=== PATIENT | female | born 1950 | race Caucasian/White ===

== ENCOUNTER → 2016-10-01 | Outpatient (CLI) | payer MEDICAID | LOC: FIMAGING 14:51 | PROVIDERS: ATTEND Internal Medicine | DX: N20.0 Calculus of kidney (principal); I86.2 Pelvic varices; K76.89 Other specified diseases of liver ==

== ENCOUNTER → 2017-04-26 | Outpatient (CLI) | payer MEDICAID | LOC: FIMAGING 12:05 | PROVIDERS: ATTEND Internal Medicine | DX: M19.042 Primary osteoarthritis, left hand (principal) ==

== ENCOUNTER → 2017-05-10 | Outpatient (CLI) | payer MEDICAID | LOC: FIMAGING 11:39 | PROVIDERS: ATTEND Internal Medicine | DX: Z12.31 Encounter for screening mammogram for malignant neoplasm of breast (principal) ==

== ENCOUNTER → 2018-02-26 | Outpatient (CLI) | payer OTHER, MEDICAID | LOC: BHFA 14:00 | PROVIDERS: ATTEND Internal Medicine Cardiovascular Disease | DX: R07.9 Chest pain, unspecified (principal) ==

== ENCOUNTER → 2018-03-28 | Outpatient (CLI) | payer OTHER, MEDICAID | LOC: FIMAGING 13:29 | PROVIDERS: ATTEND Internal Medicine | DX: E78.5 Hyperlipidemia, unspecified (principal); H34.8112 Central retinal vein occlusion, right eye, stable; I65.21 Occlusion and stenosis of right carotid artery; H54.61 Unqualified visual loss, right eye, normal vision left eye; I10 Essential (primary) hypertension; M54.2 Cervicalgia; R73.03 Prediabetes; Z51.81 Encounter for therapeutic drug level monitoring ==

== ENCOUNTER → 2018-04-09 | Outpatient (CLI) | payer OTHER, MEDICAID ==
[~2018-04-09] MED LIST: IOPAMIDOL (ISOVUE 370) 100 ML BTL IV ONE
== END | disposition home or self-care (01) ==
LOC: FIMAGING 15:07
PROVIDERS: ATTEND Ophthalmology Retina Specialist
DX: H34.11 Central retinal artery occlusion, right eye (principal)
CPT/HCPCS: 70481; Q9967

== ENCOUNTER → 2018-04-10 | Outpatient (CLI) | payer OTHER, MEDICAID | LOC: FIMAGING 09:29 | PROVIDERS: ATTEND Internal Medicine | DX: I77.3 Arterial fibromuscular dysplasia (principal) | CPT/HCPCS: 70498; Q9967 ==

== ENCOUNTER 2018-04-16 13:49 | Inpatient (IN) | payer OTHER, MEDICAID ==
--- NOTE | 2018-04-16 13:57 | EDPHY ---
H & P Time Seen by Provider: 04/16/18 13:55 HPI/ROS: CHIEF COMPLAINT: Severe epigastric pain HISTORY OF PRESENT ILLNESS: 67-year-old woman with a history of hypertension and cholecystectomy was at the gas station at 1:30 p.m. Today when she had the sudden onset of epigastric pain radiating to her back which comes in waves and she describes as severe. She initially says it radiates up into her chest but then when I interview her she says most of her pain is between her umbilicus and her epigastrium . Denies vomiting or diarrhea or trouble breathing. Denies weakness or numbness in extremities. Not better or worse with anything. REVIEW OF SYSTEMS: Eye: no change in vision ENT: no sore throat Cardiac: HPI no syncope Pulmonary: no cough or SOB Abdomen: HPI Musculoskeletal: Radiates to the back and no other extremity symptoms. Skin: no rash Neuro: no headache Constitutional: no fever : no urinary symptoms A comprehensive 10 point review of systems is otherwise negative aside from elements mentioned in the history of present illness. PAST MEDICAL HISTORY: Includes hypertension, hyperlipidemia, breast implants. ED visit from January of 2013 personally reviewed Social history: Here with her son General Appearance: Alert and conversant, cooperative. Appears uncomfortable. Eyes: No scleral icterus. ENT, Mouth: Normal mucous membranes. Respiratory: Normal respiratory effort, breath sounds equal, lungs are clear to auscultation. Cardiovascular: Regular rate and rhythm. Gastrointestinal: Upper abdominal tenderness to palpation, no pulsatile mass. Neurological: Alert, face symmetric, normal motor and sensory in extremities. Skin: Warm and dry, no rashes. Musculoskeletal: No peripheral edema. Psychiatric: Not agitated. Emergency Department course/MDM: Procedure: Limited abdominal ultrasound. A limited abdominal ultrasound was performed of the retroperitoneum. The indication for the study was to rule out abdominal aortic aneurysm. On the study no evidence of AAA was identified. Results: No evidence of aortic aneurysm. The examination was performed and interpreted by myself. Fentanyl 100 mcg IV, Zofran 4 mg IV, CT scanning discussed and consented. I think that acute coronary syndrome or pulmonary embolism would be unlikely. Initial EKG does not show ST elevation. Differential does include aortic dissection or abdominal aortic aneurysm, pancreatitis, common duct stone, intestinal perforation. 1518: [place], no reason for abdominal pain on CT. 1540: Results discussed, lipase normal, patient still has 5/10 pain. Ultrasound right upper quadrant, she is not comfortable with going home the way she is feeling now, admit for further workup. Smoking Status: Never smoked Constitutional: Initial Vital Signs Temperature (C) 36.3 C 04/16/18 13:51 Heart Rate 99 04/16/18 13:51 Respiratory Rate 20 04/16/18 13:51 Blood Pressure 136/69 H 04/16/18 13:51 O2 Sat (%) 97 04/16/18 13:51 O2 Delivery Mode Room Air Allergies/Adverse Reactions: No Known Allergies Allergy (Verified 04/16/18 13:50) Home Medications: Medication Instructions Recorded Acetaminophen/Caffeine [Excedrin 2 each PO BID PRN 04/16/18 Tension Headache Cplt] Aspirin [Aspirin 325 mg (*)] 325 mg PO DAILY 04/16/18 Atenolol [Tenormin 25 mg (*)] 25 mg PO DAILY@17 04/16/18 Baclofen [Baclofen 10 mg (*)] 10 mg PO TID PRN 04/16/18 Cholecalciferol Vit D3 [Vitamin D3 2,000 units PO DAILY 04/16/18 (*)] Diclofenac Sodium [Voltaren] 1 skinny TP QID PRN 04/16/18 Doxepin HCl [Silenor] 6 mg PO HS 04/16/18 Gabapentin [Gralise] 600 mg PO DAILY@20 04/16/18 Herbals/Supplements -Info Only 1 ea PO DAILY 04/16/18 Losartan Potassium [Cozaar 25 mg 25 mg PO DAILY 04/16/18 (*)] Zolpidem Tartrate [Ambien Cr] 6.25 mg PO HS 04/16/18 Medical Decision Making - Diagnostics Imaging Results: Imaging Impressions Abdomen CT 04/16/18 14:13 Impression: 1. Normal caliber aorta, without dissection. 2. Minimal stranding in the pelvis adjacent to multiple sigmoid diverticula, which could be related to uncomplicated diverticulitis. 3. Additional findings, as above. Findings discussed with Brennen Quiñonez M.D., on April 16, 2018 at 1517. E:amm Chest/Thorax CTA 04/16/18 14:13 Impression: 1. Normal caliber aorta, without dissection. 2. Minimal stranding in the pelvis adjacent to multiple sigmoid diverticula, which could be related to uncomplicated diverticulitis. 3. Additional findings, as above. Findings discussed with Brennen Quiñonez M.D., on April 16, 2018 at 1517. E:amm Imaging: Discussed imaging studies w/ potable water treatment operator Radiologist - Data Points Laboratory Results: Laboratory Results 04/16/18 14:05 04/16/18 14:05 04/16/18 04/16/18 04/16/18 14:10 14:10 14:05 WBC RBC Hgb POC Hgb 15.0 gm/dL gm/dL (12.6-16.3) Hct POC Hct 44 % % (38-47) MCV MCH MCHC RDW Plt Count MPV Neut % (Auto) Lymph % (Auto) [place] % (Auto) Eos % (Auto) Baso % (Auto) Nucleat RBC Rel Count Absolute Neuts (auto) Absolute Lymphs (auto) Absolute Monos (auto) Absolute Eos (auto) Absolute Basos (auto) Absolute Nucleated RBC Immature Gran % Immature Gran # RBC/WBC/PLT Morphology Platelet Estimate POC Sodium 142 mEq/L mEq/L (135-145) Sodium 140 mEq/L mEq/L (135-145) POC Potassium 3.3 mEq/L mEq/L (3.3-5.0) Potassium 3.7 mEq/L mEq/L (3.5-5.2) POC Chloride 105 mEq/L mEq/L (97-110) Chloride 106 mEq/L mEq/L (97-110) Carbon Dioxide 22 mEq/l mEq/l (22-31) Anion Gap 12 mEq/L mEq/L (6-14) POC BUN 13 mg/dL mg/dL (7-23) BUN 14 mg/dL mg/dL (7-23) Creatinine 0.7 mg/dL mg/dL (0.6-1.0) POC Creatinine 0.7 mg/dL mg/dL (0.6-1.0) Estimated GFR > 60 Glucose 123 mg/dL H mg/dL (70-100) POC Glucose 126 mg/dL H mg/dL (70-100) Calcium 9.7 mg/dL mg/dL (8.5-10.4) Total Bilirubin 0.7 mg/dL mg/dL (0.1-1.4) Conjugated Bilirubin 0.5 mg/dL mg/dL (0.0-0.5) Unconjugated Bilirubin 0.2 mg/dL mg/dL (0.0-1.1) AST 194 IU/L H IU/L (14-46) ALT 112 IU/L H IU/L (9-52) Alkaline Phosphatase 124 IU/L IU/L (38-126) POC Troponin I 0.00 ng/mL ng/mL (0.00-0.08) Total Protein 7.5 g/dL g/dL (6.3-8.2) Albumin 4.7 g/dL g/dL (3.5-5.0) Lipase 65 IU/L IU/L (23-300) 04/16/18 14:05 WBC 12.96 10^3/uL H 10^3/uL (3.80-9.50) RBC 4.92 10^6/uL 10^6/uL (4.18-5.33) Hgb 14.4 g/dL g/dL (12.6-16.3) POC Hgb Hct 42.7 % % (38.0-47.0) POC Hct MCV 86.8 fL fL (81.5-99.8) MCH 29.3 pg pg (27.9-34.1) MCHC 33.7 g/dL g/dL (32.4-36.7) RDW 14.3 % % (11.5-15.2) Plt Count 266 10^3/uL 10^3/uL (150-400) MPV 12.0 fL H fL (8.7-11.7) Neut % (Auto) 51.7 % % (39.3-74.2) Lymph % (Auto) 40.0 % % (15.0-45.0) [place] % (Auto) 7.3 % % (4.5-13.0) Eos % (Auto) 0.3 % L % (0.6-7.6) Baso % (Auto) 0.4 % % (0.3-1.7) Nucleat RBC Rel Count 0.0 % % (0.0-0.2) Absolute Neuts (auto) 6.70 10^3/uL H 10^3/uL (1.70-6.50) Absolute Lymphs (auto) 5.18 10^3/uL H 10^3/uL (1.00-3.00) Absolute Monos (auto) 0.95 10^3/uL H 10^3/uL (0.30-0.80) Absolute Eos (auto) 0.04 10^3/uL 10^3/uL (0.03-0.40) Absolute Basos (auto) 0.05 10^3/uL 10^3/uL (0.02-0.10) Absolute Nucleated RBC 0.00 10^3/uL 10^3/uL (0-0.01) Immature Gran % 0.3 % % (0.0-1.1) Immature Gran # 0.04 10^3/uL 10^3/uL (0.00-0.10) RBC/WBC/PLT Morphology TNP Platelet Estimate TNP POC Sodium Sodium POC Potassium Potassium POC Chloride Chloride Carbon Dioxide Anion Gap POC BUN BUN Creatinine POC Creatinine Estimated GFR Glucose POC Glucose Calcium Total Bilirubin Conjugated Bilirubin Unconjugated Bilirubin AST ALT Alkaline Phosphatase POC Troponin I Total Protein Albumin Lipase Medications Given: Hydrocodone Bitart/Acetaminophen ([place] 5/325) 1 - 2 tab PO Q4HRS PRN PRN Reason: Pain, Moderate Able to Take PO Stop: 04/26/18 15:59 Last Admin: 04/16/18 18:02 Dose: 1 tab Sodium Chloride (Ns) 1,000 mls @ 150 mls/hr IV CONT MARSHA Stop: 10/13/18 15:59 Last Admin: 04/16/18 18:02 Dose: 1,000 mls Discontinued Medications Fentanyl (Sublimaze) 100 mcg IVP EDNOW ONE Stop: 04/16/18 14:05 Last Admin: 04/16/18 14:20 Dose: 100 mcg Sodium Chloride (Ns) 1,000 mls @ 0 mls/hr IV EDNOW ONE; Wide Open PRN Reason: Protocol Stop: 04/16/18 14:05 Last Admin: 04/16/18 14:19 Dose: 1,000 mls Ondansetron HCl (Zofran) 4 mg IVP EDNOW ONE Stop: 04/16/18 14:05 Last Admin: 04/16/18 14:16 Dose: 4 mg Point of Care Test Results: Chemistry 04/16/18 04/16/18 14:10 14:10 POC Sodium 142 mEq/L mEq/L (135-145) POC Potassium 3.3 mEq/L mEq/L (3.3-5.0) POC Chloride 105 mEq/L mEq/L (97-110) POC BUN 13 mg/dL mg/dL (7-23) POC Creatinine 0.7 mg/dL mg/dL (0.6-1.0) POC Glucose 126 mg/dL H mg/dL (70-100) POC Troponin I 0.00 ng/mL ng/mL (0.00-0.08) ISTAT H&H 04/16/18 14:10 POC Hgb 15.0 gm/dL gm/dL (12.6-16.3) POC Hct 44 % % (38-47) Departure - Departure Disposition: [facility] Inpatient Acute Clinical Impression: Abdominal pain Qualifiers: Abdominal location: epigastric Qualified Code(s): R10.13 - Epigastric pain Condition: Good
[2018-04-16] MEDS ORDERED: fentaNYL 100 MCG/2 ML INJ IVP ONE (14:04)
[2018-04-16] MEDS ORDERED: NS 1,000 ML IV ONE (14:04)
[2018-04-16] MEDS ORDERED: ONDANSETRON 4 MG/2 ML VIAL IVP ONE (14:04)
--- NOTE | 2018-04-16 14:08 | CPEKG ---
Test Reason : OPEN Blood Pressure : / mmHG Vent. Rate : 084 BPM Atrial Rate : 082 BPM P-R Int : 180 ms QRS Dur : 096 ms QT Int : 394 ms P-R-T Axes : 056 029 020 degrees QTc Int : 466 ms Sinus rhythm Minimal ST depression, lateral leads Confirmed by Brennen Quiñonez ([id number]) on 04/16/2018 2:07:44 PM Referred By: Confirmed By:Brennen Quiñonez
[2018-04-16] MEDS ORDERED: IOPAMIDOL (ISOVUE 370) 100 ML BTL IV ONE (14:16)
[2018-04-16 14:20] LABS: PLATELET COUNT 266 10^3/uL (150-400)
[2018-04-16] MEDS ORDERED: ONDANSETRON DISINTEGRATING 4 MG TAB PO PRN (16:00)
[2018-04-16] MEDS ORDERED: PROMETHAZINE HCL 25 MG/ML INJ IVP PRN (16:00)
[2018-04-16] MEDS ORDERED: HYDROmorphONE/DILAUDID 1 MG/ML INJ IVP PRN (16:00)
[2018-04-16] MEDS ORDERED: ACETAMINOPHEN 325 MG TAB PO PRN (16:00)
[2018-04-16] MEDS ORDERED: oxyCODONE IR 5 MG TAB PO PRN (16:00)
[2018-04-16] MEDS ORDERED: ONDANSETRON 4 MG/2 ML VIAL IVP PRN (16:00)
--- NOTE | 2018-04-16 16:11 | PDGENHP ---
History and Physical - Chief Complaint abdominal pain - History of Present Illness 67 yo F with PMH of HTN, HLD presenting with sudden onset of severe abdominal pain. She notes that until this am she had been feeling fine, but suddenly developed abdominal pain initially in her mid epigastric region but then involving her bilateral upper quadrants. She notes she has never had pain similar to this in the past. It has improved significantly since arrival to the ER and after receiving pain medication. She has not eaten anything today due to the pain and denies hunger. She was recently diagnosed with a retinal artery occlusion and was started on losartan and aspirin but otherwise has not had any recent change in her medications or health. She has been trying to lose weight and has been practicing intermittent fasting and has lost 20 pounds over the last couple of months. History Information - Allergies/Home Medication List Allergies/Adverse Reactions: No Known Allergies Allergy (Verified 04/16/18 13:50) Home Medications: Acetaminophen/Caffeine [Excedrin Tension Headache Cplt] 2 each PO BID PRN [Last Taken 04/16/18 05:00] Aspirin [Aspirin 325 mg (*)] 325 mg PO DAILY 04/16/18 [Last Taken 04/16/18 10:00 ] Atenolol [Tenormin 25 mg (*)] 25 mg PO DAILY@17 04/16/18 [Last Taken 04/15/18] Baclofen [Baclofen 10 mg (*)] 10 mg PO TID PRN 04/16/18 [Last Taken 04/16/18 03: 00] Cholecalciferol Vit D3 [Vitamin D3 (*)] 2,000 units PO DAILY 04/16/18 [Last Taken 04/16/18] Diclofenac Sodium [Voltaren] 1 skinny TP QID PRN 04/16/18 [Last Taken 04/15/18] Doxepin HCl [Silenor] 6 mg PO HS 04/16/18 [Last Taken 04/15/18] Gabapentin [Gralise] 600 mg PO DAILY@20 04/16/18 [Last Taken 04/15/18] Herbals/Supplements -Info Only 1 ea PO DAILY 04/16/18 [Last Taken 04/16/18] Losartan Potassium [Cozaar 25 mg (*)] 25 mg PO DAILY 04/16/18 [Last Taken 09:00] Zolpidem Tartrate [Ambien Cr] 6.25 mg PO HS 04/16/18 [Last Taken 04/15/18] I have personally reviewed and updated: family history, medical history, social history, surgical history - Past Medical History hypertension, hyperlipidemia Additional medical history: nephrolithiasis. retinal artery occlusion - Surgical History Reports: cholecystectomy Additional surgical history: breast augmentation - Family History Positive for: non-pertinent - Social History Smoking Status: Never smoked Alcohol Use: None Drug Use: None Additional social history: lives indepenently Review of Systems Review of Systems: ROS: 10pt was reviewed & negative except for what was stated in HPI & below Physical Exam Physical Exam: Temp Pulse Resp BP Pulse Ox 36.3 C 80 16 100/60 96 04/16/18 13:51 04/16/18 15:33 04/16/18 15:33 04/16/18 15:33 04/16/18 15:33 Constitutional: no apparent distress, appears nourished Eyes: PERRL, anicteric sclera Ears, Nose, Mouth, Throat: moist mucous membranes, hearing normal, ears appear normal Cardiovascular: regular rate and rhythym, no murmur, rub, or gallop, No edema Respiratory: no respiratory distress, no rales or rhonchi, clear to auscultation Gastrointestinal: No normoactive bowel sounds, No soft, non-tender abdomen, No guarding, No rebound Genitourinary: no bladder tenderness Skin: warm, normal color Musculoskeletal: full muscle strength, no muscle tenderness Neurologic: AAOx3 Psychiatric: interacting appropriately, not anxious, not encephalopathic Lab Data & Imaging Review 04/16/18 14:05 04/16/18 14:05 WBC 12.96 10^3/uL (3.80-9.50) H 04/16/18 14:05 RBC 4.92 10^6/uL (4.18-5.33) 04/16/18 14:05 Hgb 14.4 g/dL (12.6-16.3) 04/16/18 14:05 POC Hgb 15.0 gm/dL (12.6-16.3) 04/16/18 14:10 Hct 42.7 % (38.0-47.0) 04/16/18 14:05 POC Hct 44 % (38-47) 04/16/18 14:10 MCV 86.8 fL (81.5-99.8) 04/16/18 14:05 MCH 29.3 pg (27.9-34.1) 04/16/18 14:05 MCHC 33.7 g/dL (32.4-36.7) 04/16/18 14:05 RDW 14.3 % (11.5-15.2) 04/16/18 14:05 Plt Count 266 10^3/uL (150-400) 04/16/18 14:05 MPV 12.0 fL (8.7-11.7) H 04/16/18 14:05 Neut % (Auto) 51.7 % (39.3-74.2) 04/16/18 14:05 Lymph % (Auto) 40.0 % (15.0-45.0) 04/16/18 14:05 [place] % (Auto) 7.3 % (4.5-13.0) 04/16/18 14:05 Eos % (Auto) 0.3 % (0.6-7.6) L 04/16/18 14:05 Baso % (Auto) 0.4 % (0.3-1.7) 04/16/18 14:05 Nucleat RBC Rel Count 0.0 % (0.0-0.2) 04/16/18 14:05 Absolute Neuts (auto) 6.70 10^3/uL (1.70-6.50) H 04/16/18 14:05 Absolute Lymphs (auto) 5.18 10^3/uL (1.00-3.00) H 04/16/18 14:05 Absolute Monos (auto) 0.95 10^3/uL (0.30-0.80) H 04/16/18 14:05 Absolute Eos (auto) 0.04 10^3/uL (0.03-0.40) 04/16/18 14:05 Absolute Basos (auto) 0.05 10^3/uL (0.02-0.10) 04/16/18 14:05 Absolute Nucleated RBC 0.00 10^3/uL (0-0.01) 04/16/18 14:05 Immature Gran % 0.3 % (0.0-1.1) 04/16/18 14:05 Immature Gran # 0.04 10^3/uL (0.00-0.10) 04/16/18 14:05 RBC/WBC/PLT Morphology TNP 04/16/18 14:05 Platelet Estimate TNP 04/16/18 14:05 POC Sodium 142 mEq/L (135-145) 04/16/18 14:10 Sodium 140 mEq/L (135-145) 04/16/18 14:05 POC Potassium 3.3 mEq/L (3.3-5.0) 04/16/18 14:10 Potassium 3.7 mEq/L (3.5-5.2) 04/16/18 14:05 POC Chloride 105 mEq/L (97-110) 04/16/18 14:10 Chloride 106 mEq/L (97-110) 04/16/18 14:05 Carbon Dioxide 22 mEq/l (22-31) 04/16/18 14:05 Anion Gap 12 mEq/L (6-14) 04/16/18 14:05 POC BUN 13 mg/dL (7-23) 04/16/18 14:10 BUN 14 mg/dL (7-23) 04/16/18 14:05 Creatinine 0.7 mg/dL (0.6-1.0) 04/16/18 14:05 POC Creatinine 0.7 mg/dL (0.6-1.0) 04/16/18 14:10 Estimated GFR > 60 04/16/18 14:05 Glucose 123 mg/dL (70-100) H 04/16/18 14:05 POC Glucose 126 mg/dL (70-100) H 04/16/18 14:10 Calcium 9.7 mg/dL (8.5-10.4) 04/16/18 14:05 Total Bilirubin 0.7 mg/dL (0.1-1.4) 04/16/18 14:05 Conjugated Bilirubin 0.5 mg/dL (0.0-0.5) 04/16/18 14:05 Unconjugated Bilirubin 0.2 mg/dL (0.0-1.1) 04/16/18 14:05 AST 194 IU/L (14-46) H 04/16/18 14:05 ALT 112 IU/L (9-52) H 04/16/18 14:05 Alkaline Phosphatase 124 IU/L (38-126) 04/16/18 14:05 POC Troponin I 0.00 ng/mL (0.00-0.08) 04/16/18 14:10 Total Protein 7.5 g/dL (6.3-8.2) 04/16/18 14:05 Albumin 4.7 g/dL (3.5-5.0) 04/16/18 14:05 Lipase 65 IU/L (23-300) 04/16/18 14:05 Visualized and Interpreted imaging results: Yes Interpretation: fluid around sigmoid diverticula c/w uncomplicated sigmoid diverticulitis. aorta without issues Visualized and Interpreted EKG results: Yes EKG Interpretation: Positive for: normal sinsus rhythm, ST depression Assessment & Plan Assessment: 67 yo F with PMH of HTN, HLD presenting with acute onset of abdominal pain and imaging findings c/w acute diverticulitis # acute diverticulitis: noted on imaging and presumably explanation for patients abdominal pain although her pain is noted to be somewhat diffuse and mid epigastric in nature. Will start on clear liquid diet, IVF, pain medications /antiemetics as needed, cipro/flagyl. # abnormal ecg: minimal st depressions noted, no chest pain but will get repeat ecg and trend troponin overnight, CTA without any e/o aortic dissection or other vascular pathology # abdominal pain: presumably 2/2 diverticulitis as above but somewhat unusual presentation, lipase wnl (originally reported as too high to count so will repeat in am), does have elevated elevated transaminases as next but RUQ US and imaging of bile ducts unremarkable # transaminitis: in setting of acute abdominal pain in patient without hx of drinking per her report, as above imaging of bile ducts unremarkable, will repeat in am, hepatitis serologies pending. Has been recently started on losartan which could be related, holding for now. # htn: currently BP has been on the low end, will hold losartan for now and monitor # retinal artery occlusion: started recently on asa and losartan for that-- holding losartan for now as above # observation status Patient new to my care. Old records reviewed and summarized as above. Care plan reviewed with ER doctor as above.
[2018-04-16] MEDS: HYDROCODONE/APAP 5/325 TAB PO PRN ×3 (18:02→23:25)
[2018-04-16] MEDS: NS 1,000 ML IV SCH (18:02)
[2018-04-16] MEDS: CIPROFLOXACIN 400 MG/DEXTROSE 200 ML IV SCH (18:27)
[2018-04-16] MEDS ORDERED: DICLOFENAC SODIUM 1% 100 GM GEL TP PRN (19:08)
[2018-04-16] MEDS ORDERED: BACLOFEN 10 MG TAB PO PRN (19:08)
[2018-04-16] MEDS: GABAPENTIN 600 MG PO SCH (20:21)
[2018-04-16 21:20] LABS: HEPATITIS A ANTIBODY IGM (BCH) NEGATIVE (NEGATIVE); HEPATITIS B CORE AB IGM NEGATIVE (NEGATIVE); HEPATITIS B SURFACE ANTIGEN NEGATIVE (NEGATIVE)
[2018-04-16 21:30] LABS: HEPATITIS C ANTIBODY TOTAL NEGATIVE (NEGATIVE)
[2018-04-16] MEDS: Zolpidem Tartrate [Ambien Cr] 6.25 MG PO SCH (21:31)
[2018-04-16] MEDS: DOXEPIN HCL 6 MG PO SCH (21:31)
[2018-04-17] MEDS: NS 1,000 ML IV SCH ×2 (02:39→12:18)
[2018-04-17] MEDS: CIPROFLOXACIN 400 MG/DEXTROSE 200 ML IV SCH ×2 (05:22→16:33)
[2018-04-17] MEDS: HYDROCODONE/APAP 5/325 TAB PO PRN ×2 (05:32→11:23)
[2018-04-17 08:12] LABS: PLATELET COUNT 213 10^3/uL (150-400)
[2018-04-17] MEDS: CHOLECALCIFEROL VIT D3 1,000 UNITS TAB PO SCH (08:14)
[2018-04-17] MEDS: ASPIRIN 325 MG TAB PO SCH (08:15)
--- NOTE | 2018-04-17 11:20 | PDMN ---
Medical Necessity Medical necessity: [facility] [place] M150 Acute Diverticulitis, A-2days: 67 yo presents w/ severe abd pain, sudden/acute. Further assessment shows acute diverticulitis, an abn EKG and transaminitis w/ AST/ALT 579/568 and alk phos 181. Pt started on IVF, IV antibx and IV flagyl, trend troponins and check CT to r/o aortic dissection, check hepatitis serology. Anticipate>2MN for ongoing monitoring and tx of the above, meets [facility] [place] IP criteria for acute diverticulitis w/ acute, severe abd pain and additional cardiac and abn lab findings. HX HTN, HLD
--- NOTE | 2018-04-17 12:00 | GCON ---
REFERRING PHYSICIAN: Jovita Morales NP CHIEF COMPLAINT: A 67-year-old woman admitted with abdominal pain, diverticulosis, diverticulitis, and upper abnormal liver function tests. HISTORY OF PRESENT ILLNESS: I have been asked to see this very pleasant 67-year -old consultation by Dr. Jovita Morales for evaluation of abnormal liver function tests. The patient has a history of hypertension. She is followed by Dr. Rosemary Dyson as an outpatient. She has undergone a recent workup as an outpatient for symptoms of dizziness, fatigue, shortness of breath, and neck tightness. Symptoms of neck tightness seem to be worse with activity. 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 She has had a cardiac echo which was reported to be normal. She has also had a normal EKG. She has also had carotid Dopplers which were reported to be normal. She has had a CT angio of her neck, which was normal. She has been seen by ENT as well. She has not had a treadmill stress test. She had been having some problems with constipation recently which resolved. She noted yesterday she had gone to work. After work, she had noticed that she had increasing upper abdominal pain that radiated to her back. She had associated diaphoresis. The pain was described as being colicky in nature. She does have a history of gallstones and has had a previous cholecystectomy. She had no fevers or chills. She denied any lower abdominal pain. She does have a history of hypertension as mentioned, and has been on atenolol. About 10 days ago, she was started on losartan. Also of note is she has had an acute retinal artery occlusion. That is when her blood pressure medicine was adjusted and she was started on aspirin. She presented to the hospital with complaints of abdominal pain. She has had about a 20 pound intentional weight loss. In the emergency department, she did have a right upper quadrant ultrasound that was reported to be normal. She also had a CT scan of the abdomen that was reported to be normal. Ultrasound did show a common bile duct of 5.7 mm. There was no evidence of intrahepatic biliary ductal dilatation. No evidence of choledocholithiasis. The gallbladder was surgically absent. There was evidence of cysts in the liver. A CT scan showed normal caliber aorta without evidence of dissection. There was minimal stranding in the pelvis adjacent to multiple sigmoid diverticula, possibly related to uncomplicated diverticulitis. The patient was also noted to have abnormal liver function tests. This morning, her LFTs were elevated. She had an AST of 579, ALT of 568, alk phos of 181. Bilirubin was normal at 0.4. She had a normal white count of 4.87. She does report that she has a history of frequent headaches and does take up to 4 extra-strength Tylenol a day. She reports pain has resolved, however, she is still feeling somewhat weak and fatigued. Asked to see patient for further evaluation. PAST MEDICAL HISTORY: Remarkable for hypertension, hyperlipidemia, nephrolithiasis, retinal artery occlusion. PAST SURGICAL HISTORY: Remarkable for cholecystectomy, breast augmentation. FAMILY HISTORY: Negative as it pertains to chief complaint. SOCIAL HISTORY: Nonsmoker, nondrinker. Lives independently. MEDICATIONS: Prior to admission include acetaminophen extra strength or Excedrin Tension Headache with caffeine, aspirin, atenolol, baclofen, vitamin D , Voltaren, doxepin, gabapentin, herbal supplements, and losartan. ALLERGIES: She has no known drug allergies. REVIEW OF SYSTEMS: Negative for 10 systems other than mentioned in HPI. PHYSICAL EXAMINATION: VITAL SIGNS: Pulse ox is 96%, 100/60, respiratory rate 16, pulse of 80, 36.3. GENERAL: Pleasant woman in no acute distress, lying in bed. HEENT: Normocephalic, atraumatic. EOMI. Sclerae anicteric. Mucous membranes moist. NECK: No cervical adenopathy. No thyromegaly. LUNGS: Clear. CARDIAC: Normal S1, S2 without murmur. ABDOMEN: Benign with normal bowel sounds. Nontender. EXTREMITIES: Without clubbing, cyanosis, edema. SKIN: Warm, dry, intact. NEURO: Nonfocal. PSYCH: Alert and oriented x3 with normal affect. LABORATORY DATA: Hemoglobin of 12.2, hematocrit 36.6, platelets of 213. Serologies of hepatitis A IgM antibodies negative. Hepatitis B surface antigen is negative. Hepatitis B core IgM antibody is negative. Hepatitis C antibody is negative. Serum chemistries: Serum sodium 139, potassium 3.9, chloride of 111, BUN of 8, creatinine 0.6. Liver function tests: AST of 579, ALT of 568, alk phos of 181. IMPRESSION: A 67-year-old woman with questionable uncomplicated diverticulitis. However, patient also with abnormal liver function tests with upper abdominal pain that is suggestive of biliary colic. However, CT scan and ultrasound were unremarkable. RECOMMENDATIONS: 1. Would recommend MRCP to exclude the possibility of small primary choledocholithiasis. 2. Autoimmune markers, ERNIE, and anti-smooth muscle antibody. 3. Would follow LFTs. 4. Question elevated LFTs medication related. Losartan has been held. Would also recommend holding Voltaren. We will follow with you. /[id number]/MODL MTDD
--- NOTE | 2018-04-17 15:05 | HOSPPROG ---
Hospitalist Progress Note Assessment/Plan: 67 yo F with PMH of HTN, HLD presenting with acute onset of abdominal pain and imaging findings c/w acute diverticulitis. First encounter, chart reviewed. # acute diverticulitis: - noted on imaging - possibly explanation for patients abdominal pain although her pain is noted to be somewhat diffuse and mid epigastric in nature - clear liquid diet, IVF, pain medications/antiemetics as needed - cipro/flagyl -GI consult, D/W Dr Salazar # abnormal ecg: - minimal st depressions noted - no chest pain -repeat ecg -troponin negative overnight - CTA without any e/o aortic dissection or other vascular pathology # abdominal pain: - presumably 2/2 diverticulitis -MRCP today -Pain in RUQ -US negative -lipase wnl # transaminitis: - in setting of acute abdominal pain - in patient without hx of drinking per her report - as above imaging of bile ducts unremarkable - repeat labs sig increased -reviewed with Dr Salazar - hepatitis serologies negative - Has been recently started on losartan which could be related, holding for now -no evidence of hypotension # htn: -currently BP has been on the low end -will hold losartan for now and monitor # retinal artery occlusion: -started recently on asa and losartan for that -holding losartan for now as above # observation status -change to INPT status -needs further evaluation of symptoms and abnormal labs -MRCP -Labs in am Subjective: Feeling nauseous. Some RUQ abd pain. Not hungry. Objective: Vital Signs Temp Pulse Resp BP Pulse Ox 36.6 C 65 16 117/71 95 04/17/18 12:00 04/17/18 12:00 04/17/18 12:00 04/17/18 12:00 04/17/18 12:00 Laboratory Results 04/17/18 08:00 04/17/18 08:00 04/16/18 04/17/18 04/18/18 05:59 05:59 05:59 Output Total 700 Balance -700 - Physical Exam Constitutional: no apparent distress, appears nourished, uncomfortable Eyes: PERRL, anicteric sclera, EOMI Ears, Nose, Mouth, Throat: moist mucous membranes, hearing normal, ears appear normal Cardiovascular: regular rate and rhythym, No JVD, No edema Respiratory: no respiratory distress, no rales or rhonchi, reduced air movement Gastrointestinal: normoactive bowel sounds, tenderness, No ascites Skin: warm, normal color, No mottled Musculoskeletal: full muscle strength, normal joint ROM, no joint effusions Neurologic: AAOx3 Psychiatric: interacting appropriately, not anxious, not encephalopathic, thought process linear ICD10 Worksheet Patient Problems: Problems Problem Status Onset Abdominal pain Acute
[2018-04-17] MEDS ORDERED: SUMAtriptan 25 MG TAB PO ONE (15:17)
[2018-04-17] MEDS ORDERED: ATENOLOL 25 MG TAB PO SCH (17:00)
[2018-04-17] MEDS ORDERED: BISACODYL 10 MG SUPP PR PRN (17:08)
[2018-04-17] MEDS ORDERED: MAGNESIUM HYDROXIDE 30 ML UDCUP PO PRN (17:08)
[2018-04-17] MEDS ORDERED: POLYETHYLENE GLYCOL 3350 17 GM PKT PO PRN (17:08)
[2018-04-17] MEDS ORDERED: LACTULOSE 20 GM/30 ML UDCUP PO PRN (17:08)
[2018-04-17] MEDS: SENNOSIDES/DOCUSATE SODIUM TAB PO SCH ×2 (17:13→20:48)
[2018-04-17] MEDS: GABAPENTIN 600 MG PO SCH (20:48)
[2018-04-17] MEDS: DOXEPIN HCL 6 MG PO SCH (22:30)
[2018-04-17] MEDS: Zolpidem Tartrate [Ambien Cr] 6.25 MG PO SCH (23:14)
--- NOTE | 2018-04-17 23:44 | CPEKG ---
Test Reason : OPEN Blood Pressure : / mmHG Vent. Rate : 078 BPM Atrial Rate : 078 BPM P-R Int : 227 ms QRS Dur : 091 ms QT Int : 395 ms P-R-T Axes : 061 027 006 degrees QTc Int : 450 ms Sinus rhythm Prolonged MD interval Borderline T abnormalities, inferior leads Confirmed by Sly Arvizu ([id number]) on 04/17/2018 11:44:33 PM Referred By: Confirmed By:Sly Arvizu
[2018-04-18] MEDS: CIPROFLOXACIN 400 MG/DEXTROSE 200 ML IV SCH (05:19)
[2018-04-18 08:34] VITALS: BP 121/57
[2018-04-18] MEDS: CHOLECALCIFEROL VIT D3 1,000 UNITS TAB PO SCH (09:28)
[2018-04-18] MEDS: ASPIRIN 325 MG TAB PO SCH (09:28)
[2018-04-18] MEDS: SENNOSIDES/DOCUSATE SODIUM TAB PO SCH (09:29)
--- NOTE | 2018-04-18 09:50 | GDS ---
FINAL DIAGNOSES: 1. Acute uncomplicated diverticulitis. 2. Elevated transaminases. 3. Minimal ST depression noted on EKG. 4. Hypertension. 5. Recent retinal artery occlusion, possibility of mild fibromuscular dysplasia on CT angiogram of h er neck. HOSPITAL COURSE: This is a 67-year-old female admitted with abdominal pain. Imaging showed acute mi ld uncomplicated diverticulitis. She has been treated with appropriate antibiotics with resolution o f her abdominal pain. She still has not eaten a full meal, though, she is quite anxious to go home a nd can keep herself hydrated. She will be discharged with a total of 8 days of Flagyl as well as cip rofloxacin. I have given her targets for reintroducing food and have given her strict return precaut ions if she is unable to tolerate food or keep herself hydrated. She had minimal ST depressions noted on her EKG. She has some right neck pain that I do not believe is angina. She had 3 negative troponins. Changes on her EKG have normalized on a subsequent EKG. I do not think that this is an acute cardiac event, doubt the EKG changes indicate infarct. She will follow up with her PCP for this. I think she should probably consider a stress test given likely oth er vascular disease with a retinal artery occlusion. Recent retinal artery occlusion: She started on aspirin. There was concern that she was having hype rtensive episodes. Thus, she had been started on losartan, which has been switched to lisinopril. T here was a question of fibromuscular dysplasia on her neck CT angiogram which may explain her other v ascular issues. Will defer to outpatient followup for further workup. Transaminitis: Her AST peaked at 578 with an ALT of 568. Both of these are downtrending as is her a lkaline phosphatase. AST is 191, ALT 387 and alkaline phosphatase 158 on discharge. She had normal bilirubin. There was concern that this may be due to her losartan. I found case reports that this m ay happen. Will change her to a low dose of lisinopril at 5 mg in addition to her atenolol. Dr. Socorro cope has been involved and also recommends holding her Voltaren, which I have done. She has pending, at the time of discharge, an ERNIE as well as an anti-smooth muscle antibody that have been ordered. She should have her LFTs rechecked in the next week. BILLING: I spent more than 30 minutes, on the day of discharge, coordinating care. /[id number]/MODL
--- NOTE | 2018-04-18 10:17 | ASMTCMCOM ---
CM Note CM Note Notes: Spoke w/, pt admitted with diverticulitis but is medically stable for discharge today. She will dc independent, CM available for any changes. DC Plan: Independent Date Signed: 04/18/2018 10:16 AM Electronically Signed By:Elsa Cross RN
--- NOTE | 2018-04-18 10:20 | ASMTLACE ---
MAMTA Acuity / Level of Answers: Yes Care: Did the patient have an inpatient admission? Comorbidities - select Answers: Opioid dependence all that apply / Chronic pain Other Notes: HTN; HLD # of Emergency department Answers: 1-2 visits in the last 6 months Score: 9 Date Signed: 04/18/2018 10:19 AM Electronically Signed By:Elsa Cross RN
== END 2018-04-18 12:56 | disposition home or self-care (01) | DRG 392 ==
LOC: OBSVTOIN 16:00 → F3E 17:52
PROVIDERS: ADMIT Internal Medicine; ATTEND Internal Medicine
DX: K57.32 Diverticulitis of large intestine without perforation or abscess without bleeding (principal); H34.10 Central retinal artery occlusion, unspecified eye; E86.9 Volume depletion, unspecified; I10 Essential (primary) hypertension; R74.0 Nonspecific elevation of levels of transaminase and lactic acid dehydrogenase [LDH]; E78.5 Hyperlipidemia, unspecified; G43.909 Migraine, unspecified, not intractable, without status migrainosus
CPT/HCPCS: 82435-PO; 82565-PO; 82947-PO; 84132-PO; 84295-PO; 84484-ER; 84520-PO; 85014-ER; 86255-90; 96374; G0472; J0744; J2405; J3010; Q9967

== ENCOUNTER → 2018-05-27 | Outpatient (CLI) | payer OTHER, MEDICAID ==
[~2018-05-27] MED LIST changes: +METOPROLOL TARTRATE 5 MG/5 ML INJ ONE
== END ==
LOC: FIMAGING 12:54
PROVIDERS: ATTEND Internal Medicine Interventional Cardiology
DX: I25.10 Atherosclerotic heart disease of native coronary artery without angina pectoris (principal); E78.5 Hyperlipidemia, unspecified; I77.3 Arterial fibromuscular dysplasia; I48.91 Unspecified atrial fibrillation
CPT/HCPCS: 75574; Q9967

== ENCOUNTER → 2018-06-26 | Outpatient (CLI) | payer OTHER, MEDICAID ==
[~2018-06-26] MED LIST changes: +GADOBUTROL 10 ML VIAL IVP ONE; -IOPAMIDOL (ISOVUE 370) 100 ML BTL IV ONE; -METOPROLOL TARTRATE 5 MG/5 ML INJ ONE
== END ==
LOC: FIMAGING 11:28
PROVIDERS: ATTEND Internal Medicine
DX: M54.2 Cervicalgia (principal); R42 Dizziness and giddiness; R51 Headache
CPT/HCPCS: 70548; A9585

== ENCOUNTER 2018-06-27 17:47 | Emergency (ER) | payer OTHER, MEDICAID ==
[2018-06-27] MEDS ORDERED: HYDROmorphONE/DILAUDID 2 MG/ML INJ IVP ONE (18:51)
[2018-06-27 19:05] LABS: PLATELET COUNT 277 10^3/uL (150-400)
[2018-06-27] MEDS ORDERED: methylPREDNISolone SOD SUCC 125 MG/2 ML VIAL IVP ONE (19:38)
--- NOTE | 2018-06-27 20:25 | EDPHY ---
H & P Stated Complaint: dizzy and thomas ongoing, worse 1 day officer captain, ongoing jaw pain Time Seen by Provider: 06/27/18 18:36 HPI/ROS: CHIEF COMPLAINT: Bilateral jaw pain, headache, dizziness HISTORY OF PRESENT ILLNESS: This is a 68-year-old female with a significant history of a retinal artery occlusion in the right eye who has had bilateral jaw pain since that time. Patient is followed by Dr. Dyson. Over last 1-2 days she has had significant worsening of her bilateral jaw pain, also reports pain behind both eyes in the retro-orbital area as well as pain across her occipital region somewhat worse on the right. She reports significant dizziness, some double vision which is been present since her retinal artery occlusion in the right eye, and severe head discomfort. She also notes numbness both sides of her face. Patient denies any fevers or chills. She denies any head trauma. She is not anticoagulated. She did take some Excedrin for her headache pain. Reports a history of migraines in the past. Denies any numbness or tingling in the arms or legs, denies speech difficulties. Patient did have an MR angiogram of the neck obtained 2 days ago demonstrating no occlusions of the carotid or vertebral arteries and no dissection. Per the patient, she was supposed to have an MRI of the brain but an error was made. She also notes that the question of temporal arteritis has been raised but the patient has normal sed rate and CRP. Patient notes that she was told by her opthomologist that she should have a CT scan of her head to make sure that she does not have any bleeding before prednisone is administered. REVIEW OF SYSTEMS: A comprehensive 10 system review of systems was reviewed and is otherwise negative aside from elements mentioned in the history of present illness and medical decision making. PAST MEDICAL HISTORY: Renal artery occlusion, diverticulitis, migraine headaches. SOCIAL HISTORY: Nonsmoker. VITAL SIGNS Reviewed by me. GENERAL: Well-developed, well-nourished, holding the back of her head. Appears uncomfortable. HEENT: Atraumatic. Eyes: PERRL, EOMI, but patient has significant pain when moving her eyes to look upwards or downward, no nystagmus. No icterus. No injection. Mouth: moist mucous membranes. No erythema or lesions. Neck: Nontender to palpation. No adenopathy. Negative Kernig's. Negative Brudzinski's. No meningismus. LUNGS: Clear to auscultation bilaterally, no wheezes, rhonchi or rales. CARDIAC: Regular rate and rhythm, no rubs, murmurs or gallops. ABDOMEN: Soft, nontender, nondistended, bowel sounds normal. BACK: No CVA tenderness. EXTREMITIES: No trauma. No edema. Range of motion is normal throughout. NEURO: Alert and oriented, cranial nerves II through XII are intact. Motor strength 5 over 5 in all major muscle groups. Sensation intact to light touch. Normal gait. Normal [id number]-ea-[id number]. Normal ctrp-[id number]. SKIN: Warm and dry, no rash. PSYCHIATRIC: Normal mentation, no agitation. - Personal History Current Tetanus Diphtheria and Acellular Pertussis (TDAP): Yes - Medical/Surgical History Hx Asthma: No Hx Chronic Respiratory Disease: No Hx Diabetes: No Hx Cardiac Disease: No Hx Renal Disease: No Hx Cirrhosis: No Hx Alcoholism: No Hx HIV/AIDS: No Hx Splenectomy or Spleen Trauma: No Other PMH: HTN, right vein occulsion in eye, gallbladder removed, breast implants, r ovary removed - Social History Smoking Status: Never smoked Constitutional: Initial Vital Signs Temperature (C) 36.8 C 06/27/18 17:59 Heart Rate 79 06/27/18 17:59 Respiratory Rate 16 06/27/18 17:59 Blood Pressure 146/72 H 06/27/18 17:59 O2 Sat (%) 97 06/27/18 17:59 O2 Delivery Mode Room Air O2 (L/minute) 2 Allergies/Adverse Reactions: No Known Allergies Allergy (Verified 04/16/18 13:50) Home Medications: Medication Instructions Recorded Aspirin [Aspirin 325 mg (*)] 325 mg PO DAILY 04/16/18 Atenolol [Tenormin 25 mg (*)] 25 mg PO DAILY@17 04/16/18 Baclofen [Baclofen 10 mg (*)] 10 mg PO TID PRN 04/16/18 Cholecalciferol Vit D3 [Vitamin D3 2,000 units PO DAILY 04/16/18 (*)] Doxepin HCl [Silenor] 6 mg PO HS 04/16/18 Gabapentin [Gralise] 600 mg PO DAILY@20 04/16/18 Zolpidem Tartrate [Ambien Cr] 6.25 mg PO HS 04/16/18 HYDROmorphone HCL [Dilaudid 2 mg 2 mg PO Q4 PRN #10 tab 06/27/18 (*)] predniSONE 60 mg PO DAILY #15 tab 06/27/18 Medical Decision Making - Diagnostics EKG Interpretation: 12-LEAD EKG: Please see the full report in [facility]. My interpretation: Normal sinus rhythm. No ST or T-wave changes. Imaging Results: Brain MRI 06/27/18 18:52 Impression: Normal MRI of the brain without contrast. Results called to Dr. Batres at 9:00 PM Head MRA 06/27/18 18:52 Impression: Normal MR angiography of the [place]. Imaging: Discussed imaging studies w/ order desk caller Radiologist ED Course/Re-evaluation: 68-year-old female with a history of chronic denies jaw pain and headaches for several months, reports worsening of her symptoms over the last 1-2 days associated with significant dizziness. Patient's pain in the bilateral jaws. Head CT was ordered which was negative for any acute hemorrhage. MRI was ordered. Patient had had an IV placed and received normal saline. Labs are largely unremarkable. She received Dilaudid for her headache pain. MRI is normal. No clear cause of the patient's headache. Patient's pain had improved with the Toradol. I will discharge her on prednisone for possible temporal arteritis versus trigeminal neuralgia. Patient understands that she needs close follow-up with her primary care physician and with Neurology. She also was encouraged to follow up with either dentistry oral surgery for possibility of TMJ syndrome. Patient reports that she cannot tolerate hydrocodone or oxycodone. She was given a short course of oral Dilaudid to use if needed for more severe headache pain/jaw pain. Differential Diagnosis: After history was obtained, and the physical exam performed, a differential for headache was considered including, but not limited to, subarachnoid hemorrhage, migraine headache, CVA, TIA, trigeminal neuralgia, tension headache, - Data Points Laboratory Results: Laboratory Results 06/27/18 18:55 06/27/18 18:55 Medications Given: Discontinued Medications Hydromorphone HCl (Dilaudid) 1 mg IVP EDNOW ONE Stop: 06/27/18 18:52 Last Admin: 06/27/18 19:12 Dose: 1 mg Ketorolac Tromethamine (Toradol) 15 mg IVP EDNOW ONE Stop: 06/27/18 21:02 Last Admin: 06/27/18 21:04 Dose: 15 mg Meclizine HCl (Meclizine Hcl) 25 mg PO EDNOW ONE Stop: 06/27/18 20:52 Last Admin: 06/27/18 21:00 Dose: 25 mg Methylprednisolone Sodium Succinate (Solu-Medrol) 125 mg IVP EDNOW ONE Stop: 06/27/18 19:39 Last Admin: 06/27/18 21:00 Dose: 125 mg Point of Care Test Results: Chemistry 06/27/18 19:03 POC Troponin I 0.00 ng/mL ng/mL (0.00-0.08) Departure - Departure Disposition: Home, Routine, Self-Care Clinical Impression: Headache Qualifiers: Headache type: unspecified Headache chronicity pattern: unspecified pattern Intractability: not intractable Qualified Code(s): R51 - Headache Condition: Good Instructions: Acute Headache (ED) Additional Instructions: Okay to take oral dilaudid as needed for headache pain. Okay to take meclizine as needed for dizziness. I have given you a prescription of prednisone, 60 mg, take this daily for the next 5 days. Be sure you discussed this with Dr. Dyson. Please follow up with Dr. Dyson early next week for further evaluation and treatment. You have also been given a referral to a neurologist. I recommend to follow up with him as well. Lastly, for your jaw pain, I would see an oral surgeon for evaluation of TMJ symptoms. Referrals: Rosemary Dyson MD [Primary Care Provider] - As per Instructions Carlyle Mars DO [Medical Doctor] - As per Instructions Prescriptions: HYDROmorphone HCL [Dilaudid 2 mg (*)] 2 mg PO Q4 PRN #10 tab PRN Reason: Pain, Breakthrough predniSONE 60 mg PO DAILY #15 tab
[2018-06-27] MEDS ORDERED: MECLIZINE HCL 25 MG TAB PO ONE (20:51)
[2018-06-27] MEDS ORDERED: KETOROLAC 15 MG/1 ML SDV IVP ONE (21:01)
[2018-06-27 21:12] VITALS: BP 123/59
--- NOTE | 2018-06-28 15:35 | CPEKG ---
Test Reason : OPEN Blood Pressure : / mmHG Vent. Rate : 068 BPM Atrial Rate : 068 BPM P-R Int : 219 ms QRS Dur : 079 ms QT Int : 396 ms P-R-T Axes : 042 031 037 degrees QTc Int : 422 ms Sinus rhythm Borderline prolonged IN interval Confirmed by Amina Batres ([id number]) on 06/28/2018 3:35:36 PM Referred By: mAina Batres Confirmed By:Amina Batres
== END 2018-06-27 21:26 | disposition home or self-care (01) ==
DX: R51 Headache (principal); R68.84 Jaw pain; R42 Dizziness and giddiness
CPT/HCPCS: 70450; 70544; 70551; 93005; 96374; 96375; 99285; J1170; J1885; J2930; 84484-ER